=== PATIENT | male | born 1935 | race Caucasian/White ===

== ENCOUNTER 2019-03-08 18:24 | Inpatient (IN) | payer OTHER ==
[2019-03-08] VITALS (8 sets, daily range): BP systolic 108–164; BP diastolic 59–82; BMI 24.0
[~2019-03-08] VITALS: Ht 188 cm; Wt 84.8 kg
--- NOTE | ~2019-03-08 | HEMODYNAMI ---
PATIENT:FATIMAH STEVENS MEDICAL RECORD: [id number] : 35 LOCATION:[facility] D.2306 ADMISSION DATE: 03/08/19 Generatedon:03/10/201915:32 Patient name: FATIMAH STEVENS Patient #: [id number] SSN: : 1935 Date of study: 03/10/2019 Page: Of Hemodynamic Procedure Report Patient Data Patient Demographics Procedure consent was obtained First Name: FATIMAH Gender: Male Last Name: HILDA : 1935 Patient #: [id number] Age: 84 year(s) Race: Unknown Additional ID: [id number] Contact details [address]: [address] [place] [address] State: [place] City: [place] Zip code: [address] Past Medical History Allergies Allergen Reaction Date Comments Reported Penicillins 03/09/2019 Penicillins 03/10/2019 Admission Admission Data Admission Date: 03/08/2019 Admission Time: 20:36 Room #: D.2306 Lab Results Lab Result Date: 03/09/2019 Lab Result Time: 0:00 Biochemistry Name Units Result Min Max BUN mg/dl 37 --(----)-* 7 18 Creatinine mg/dl 1.4 --(----)*- 0.6 1.3 eGFR ml/min 51 *-(----)-- 90 120 NONAFRICAN CBC Name Units Result Min Max Hematocrit % 35.4 *-(----)-- 42 54 Hemoglobin g/dl 12.6 -*(----)-- 13.5 17.5 Procedure Procedure Types Cath Procedure Diagnostic Procedure PPM/ICD PPM Ventricular Implant Procedure Description Procedure Date Procedure Date: 03/10/2019 Procedure Start Time: 15:00 Procedure End Time: 15:32 Procedure Staff Name Function Gaudencio Newman MD Performing Physician Clinton Moran MD Assisting physician Leander Sequeira RT Monitor Rebekah Diez RT Scrub Payam Phillip RN Nurse Procedure Data Cath Procedure Fluoroscopy Diagnostic fluoroscopy Total fluoroscopy Time: 5.4 time: 5.4 min min Diagnostic fluoroscopy Total fluoroscopy dose: dose: 265.82 mGy 265.82 mGy Estimated blood loss: 5 ml Procedure Complications No complications Procedure Medications Medication Administration Route Dosage 0.9% NaCl I.V. 100 ml/hr Oxygen etCO2 Nasal cannula 2 l/min Lidocaine 1% added to field 20 Vancomycin 1 g Irrigation Versed I.V. 1 mg Fentanyl I.V. 50 mcg Vancomycin I.V.P.B 500 Versed I.V. 1 mg Fentanyl I.V. 50 mcg Hemodynamics Rest HGB: 12.6 (g/dl) Heart Rate: 52 (bpm) Snapshots Pre Cath Intra NCS Post Cath Vital Signs Time Heart Resp SPO2 etCO2 NIBP (mmHg) Rhythm Pain Sedation Rate (ipm) (%) (mmHg) Status Level (bpm) 14:51:50 41 10 100 22.5 144/64(106) A-Fib 0 (11) 10(A) , No pain 14:56:04 44 22 100 24 141/67(106) A-Fib 0 (11) 10(A) , No pain 15:00:16 42 18 100 23.2 113/48(73) A-Fib 0 (11) 10(A) , No pain 15:04:24 37 21 100 13.5 130/61(98) A-Fib 0 (11) 10(A) , No pain 15:08:31 34 20 99 21 93/77(79) A-Fib 0 (11) 9(A) , No pain 15:13:16 41 15 99 27.8 125/68(79) A-Fib 0 (11) 9(A) , No pain 15:17:26 37 17 98 1.5 112/71(94) A-Fib 0 (11) 9(A) , No pain 15:21:32 89 12 99 0 127/77(106) Paced 0 (11) 10(A) , No pain 15:25:40 69 16 98 4.5 113/78(93) Paced 0 (11) 10(A) , No pain 15:29:43 73 12 99 0.7 128/73(85) Paced 0 (11) 10(A) , No pain Medications Time Medication Route Dose Verified Delivered Reason Notes Effectiv eness by by 14:49:51 0.9% NaCl I.V. 100 Payam Payam Per ml/hr Marjan Phillip physician RN RN 14:50:02 Oxygen etCO2 2 Payam Payam for low 02 Nasal l/min Lorigan Lorigan sats cannula RN RN 14:50:22 Lidocaine added 20ml Payam Payam for local 1% to vial Lorigan Lorigan anesthetic field x2 RN RN 14:51:10 Vancomycin Topical 1 g Payam Payam used for Irrigation (added Lorigan Neetuigan procedure to RN senior field service engineer) 14:57:40 Versed I.V. 1 mg Payam Payam for Lorigan Lorigan sedation RN RN 14:57:55 Fentanyl I.V. 50 Payam Payam for mcg Lorigan Lorigan sedation RN RN 15:00:57 Vancomycin I.V.P.B 500 Payam Payam Per mg. Marjan Phillip physician RN RN 15:03:00 Versed I.V. 1 mg Payam Payam for Lorigan Lorigan sedation RN RN 15:03:05 Fentanyl I.V. 50 Payam Payam for mcg Lorigan Lorigan sedation RN roll machine operator Log Time Note 14:19:16 Signed procedure consent form obtained from patient. 14:19:20 Procedure Status Urgent Heart Cath (IP). 14::22 Time tracking: Regular hours (M-F 7:00 - 5:00) 14:19:26 Plan of Care:Hemodynamics will remain stable., Cardiac rhythm will remain stable., Comfort level will be maintained., Respiratory function will remain adequate., Patient/ family verbilizes understanding of procedure., Procedure tolerated without complication., Recovers from procedure without complications.. 14:19:39 Leander Sequeira RT(R) sent for patient. Start room use. 14:23:38 Patient allergic to Penicillins 14:28:04 Medtronic sales representative public utilities TATUM BERG present for procedure. 14:28:18 Use device set TEREZA PPM 14:28:19 2-0 Ticron Multipack ([id number]) opened to sterile field. 14:28:19 3-0 Vicryl Single Pack [id number] opened to sterile field. 14:28:20 5-0 Monocryl PS2 [id number] opened to sterile field. 14:28:20 Cautery Tip Field Technical Support Consultant opened to sterile field. 14:28:20 Cautery Pushbutton Pencil opened to sterile field. 14:28:21 Mepilex Dressing ([id number]) opened to sterile field. 14:28:23 Immobilizer Large opened to sterile field. 14:28:39 Medtronic JUAN CARLOS XT SR Generator [id number] opened to sterile field. 14:29:04 Medtronic 4074-52 PPM Lead opened to sterile field. 14:41:04 Patient received from ICU to CCL 3 Alert and oriented. Tansferred to table in Supine position. 14:41:05 Warm blankets applied, and neno hugger turned on for patient comfort. 14:41:05 Correct patient and procedure confirmed by team. 14:41:06 ECG and BP/O2 sat monitors applied to patient. 14:49:51 0.9% NaCl 100 ml/hr I.V. was administered by Payam Phillip RN; Per physician; 14:50:02 Oxygen 2 l/min etCO2 Nasal cannula was administered by Paaym Phillip RN; for low 02 sats; 14:50:22 Lidocaine 1% 20ml vial x2 added to field was administered by Payam Phillip RN; for local anesthetic; 14:50:29 Vital chart was started 14:51:10 Vancomycin Irrigation 1 g Topical (added to field) was administered by Payam Phillip RN; used for procedure; 14:52:25 Baseline sample Acquired. 14:52:27 Rhythm: 3rd degree heart block 14:52:28 Full Disclosure recording started 14:52:36 H&P Date Dictated: 03/08/2019 Within 30 days and on chart.. 14:52:37 Pre-procedure instructions explained to patient. 14:52:37 Pre-op teaching completed and patient verbalized understanding. 14:52:40 Family unavailable. 14:52:41 Patient NPO since Midnight. 14:52:44 Is the patient allergic to Iodine/contrast media? No. 14:52:47 Is patient on blood thinner?No 14:52:48 Patient diabetic? No. 14:52:50 Previous problem with sedation/anesthesia? No ? 14:52:51 Snore? Yes 14:52:52 Sleep apnea? No 14:52:53 Deviated septum? No 14:52:53 Opens mouth fully? Yes 14:52:54 Sticks out tongue? Yes 14:52:56 Airway obstruction? No ? 14:53:01 Dentures? Yes IN 14:53:09 IV patent on arrival in right forearm with 0.9% NaCl at [facility]. 14:53:12 Lab results completed and on chart. 14:53:29 Left chest area was prepped with dura-prep and draped in sterile fashion 14:53:30 Alarms reviewed by R. N. 14:53:31 Sharps counted by scrub and verified by R.N. 14:55:01 Pre sharps counted by scrub and verified by RN: Sutures: 7; Sponges: 5; Stick needles: 1; Skin needles: 2; Blade: 1; Cautery: 1 14:55:04 Grounding pad site Left thigh. 14:55:06 Grounding pad site free from injury. 14:57:00 --------ALL STOP TIME OUT------ 14:57:00 Final Timeout: patient, procedure, and site verified with staff and physician. All members of the team are in agreement. 14:57:04 Left chest site verified by team. 14:57:10 Fire Safety Assessment: A--An alcohol-based skin anteseptic being used preoperatively., B--The operative or invasive procedure is being performed above the xiphoid process or in the oropharynx. 14:57:14 Physical assessment completed. ASA score P 2 - A patient with mild systemic disease as per Gaudencio Newman MD. 14:57:18 Sedation plan: IV Moderate Sedation Medication:Versed, Fentanyl 14:57:40 Versed 1 mg I.V. was administered by Payam Phillip RN; for sedation; 14:57:55 Fentanyl 50 mcg I.V. was administered by Payam Phillip RN; for sedation; 15:00:45 Procedure started. 15:00:53 Lidocaine 1% was administered to left subclavicular area by Clinton Morna MD . 15:00:57 Vancomycin 500 mg. I.V.P.B was administered by Payam Phillip RN; Per physician; 15:01:59 Incision made to left subclavicular area. 15:03:00 Versed 1 mg I.V. was administered by Payam Phillip RN; for sedation; 15:03:05 Fentanyl 50 mcg I.V. was administered by Payam Phillip RN; for sedation; 15:05:22 Generator pocket made/opened. 15:05:28 Left subclavian vein accessed with 7Fr Peel Away Sheath. 15:05:51 Ventricular lead inserted and advanced. 15:16:23 Ventricular lead positioned. 15:16:26 Ventricular lead tested. 15:19:33 Peel-a-way sheath was split and removed. 15:19:35 Ventricular lead attachment was completed with 2-0 ticron. 15:19:42 PPM Single was attached to lead(s) and inserted into pocket. 15:21:29 Generator was sutured in place with 2-0 ticron. 15:21:33 Device pocket was irrigated with Vancomycin. 15:22:16 Subcutaneous closure was completed with 3-0 vicryl. 15::50 Parameters-- Generator: Mode: VVIR. Lower Rate: 60bpm. Upper Rate: 120bpm. 15:23:06 Parameters--Ventricular P/R Wave: 5.1mV. Current: 0.6mA; Threshold: 0.5V; Impedence: 1215OHMS. 15:23:18 Skin closure was completed with 5-0 monocryl. 15:29:07 Lt Chest incision was dressed with Mepilex dressing. 15:29:14 Procedure ended.(Physican Out) 15:29:29 Fluoroscopy time 05.40 minutes. 15:29:38 Fluoroscopy dose: 265.82 mGy 15:29:38 Flurop Dose total: 265.82 15:29:47 Dose Area Product 3100.47 mGy/cm. 15:30:48 Insertion/operative site no bleeding no hematoma. 15:30:49 Post Procedure Pulses reassessed and unchanged 15:30:56 Post-procedure physical assessment completed. ASA score P 2 - A patient with mild systemic disease as per Gaudencio Newman MD. 15:30:58 Post procedure rhythm: paced 15:31:05 Estimated blood loss: 5 ml 15:31:07 Post procedure instruction explained to patient.Patient verbalizes understanding. 15:31:07 Patient needs reinforcement of post procedure teaching. 15:31:16 Procedure and supply charges have been captured, reviewed, submitted and are correct. 15:31:19 Procedure Complication : No complications 15:31:57 Vital chart was stopped 15:31:57 See physician's report for complete and final results. 15:32:01 Report given to ICU. 15:32:04 Patient transfered to ICU with Bed. 15:32:06 Procedure ended. 15:32:06 Full Disclosure recording stopped 15:32:20 End room use (Document Last) Device Usage Item Name Manufacture Quantity Catalog Hospital Part Current Minima l Lot# / Number Charge Number Stock Stock Serial# Code 2-0 Ticron Ethicon 3 [id number] 5 Multipack ([id number]) 3-0 Vicryl Ethicon 1 [id number] 226653 [id number] 5 Single Pack [id number] 5-0 Monocryl Ethicon 1 Y495G 186531 191242 849555 5 PS2 Y495G Cautery Tip Microtek 1 [id number] 839938 926377 991610 5 Field Technical Support [employer] Cautery Microtek 1 [id number] 170856 76933 108837 5 Pushbutton [employer] Pencil Mepilex Cardinal 1 [id number] 360194 362059 658962 5 [facility] ([id number]) Immobilizer Cardinal 1 [id number] [id number] 892156 753965 5 Large [facility] Medtronic Medtronic 1 [id number] 180438 [id number] [id number] 5 [id number] JUAN CARLOS XT SR EXP Generator 06.10.20 [id number] Medtronic Medtronic 1 4074-52 528437 [id number] [id number] 5 [id number] 4074-52 PPM EXP Lead 2 Signature Audit [place] Stage Time Signature Unsigned Intra-Procedure 03/10/2019 Leander Sequeira 3:32:49 PM RT(R) Signatures Performing Physician : Signature : Gaudencio Newman MD Date : Time : Monitor : Leander Sequeira RT Signature : Date : Time : Nurse : Payam Phillip Signature : RN Date : Time : [place] [address] [place] [address]
--- NOTE | ~2019-03-08 | HEMODYNAMI ---
PATIENT:FATIMAH STEVENS MEDICAL RECORD: [id number] : 35 LOCATION:[facility] D.2306 ADMISSION DATE: 03/08/19 Generatedon:03/09/201914:52 Patient name: FATIMAH STEVENS Patient #: [id number] SSN: : 1935 Date of study: 03/09/2019 Page: Of Hemodynamic Procedure Report Patient Data Patient Demographics Procedure consent was obtained First Name: FATIMAH Gender: Male Last Name: HILDA : 1935 Patient #: [id number] Age: 84 year(s) Race: Unknown Additional ID: [id number] Contact details [address]: [address] [place] [address] State: [place] City: [place] Zip code: [address] Past Medical History Allergies Allergen Reaction Date Comments Reported Penicillins 03/09/2019 Admission Admission Data Admission Date: 03/08/2019 Admission Time: 20:36 Room #: D.2306 Lab Results Lab Result Date: 03/09/2019 Lab Result Time: 0:00 Biochemistry Name Units Result Min Max BUN mg/dl 37 --(----)-* 7 18 Creatinine mg/dl 1.4 --(----)*- 0.6 1.3 eGFR ml/min 51 *-(----)-- 90 120 NONAFRICAN CBC Name Units Result Min Max Hematocrit % 35.4 *-(----)-- 42 54 Hemoglobin g/dl 12.6 -*(----)-- 13.5 17.5 Procedure Procedure Types Cath Procedure Diagnostic Procedure LHC LHC w/Coronaries Procedure Description Procedure Date Procedure Date: 03/09/2019 Procedure Start Time: 14:20 Procedure End Time: 14:51 Procedure Staff Name Function Jamie Nunn MD Performing Physician Rebekah Diez RT Monitor Leander Sequeira RT Scrub Natalee Raza RT Scrub Mahnaz Salguero RN Nurse Procedure Data Cath Procedure Fluoroscopy Diagnostic fluoroscopy Total fluoroscopy Time: 4.6 time: 4.6 min min Diagnostic fluoroscopy Total fluoroscopy dose: 551 dose: 551 mGy mGy Contrast Material Contrast Material Type Amount (ml) Isovue 300 82 Entry Location Entry Primary Successful Side Size Upsize Upsize Entry Closure Succes sful Closure Location (Fr) 1 (Fr) 2 (Fr) Remarks Device Remarks Femoral Left 5 Fr Exoseal artery Estimated blood loss: 10 ml Diagnostic catheters Device Type Used For End Catheter Placement MULTIPACK JL 4.0 5Fr Procedure catheter MULTIPACK 3DRC 5Fr Procedure catheter MULTIPACK Pigtail 5 Fr Procedure catheter Procedure Complications No complications Procedure Medications Medication Administration Route Dosage Oxygen etCO2 Nasal cannula 2 l/min Lidocaine 2% added to field 20 Heparin Flush Bag added to field 2 bags (1000units/500ml NS) 0.9% NaCl I.V. 100 ml/hr Versed I.V. 1 mg Versed I.V. 1 mg Fentanyl I.V. 50 mcg Fentanyl I.V. 50 mcg Hemodynamics Rest HGB: 12.6 (g/dl) Heart Rate: 43 (bpm) Pressure Samples Time Site Value (mmHg) Purpose Heart Use Rate(bpm) 14:39 LV 124/5,12 Snapshot 54 14:40 AO 118/51(72) Pullback 38 14:40 LV 116/7,6 Pullback 38 Gradients Valve Time Site 1 Site 2 Mean SEP/DFP Peak To Heart Use (mmHg) (sec/min) Peak Rate (mmHg) (bpm) Aortic 14:40 LV AO 0 11 0 38 116/7,6 118/51(72) Calculations Valve P-P Mean Valve Index Valve Source Name Gradient Area Flow (cm2) Aortic 0 0 0 0 Snapshots Pre Cath Intra NCS Post Cath Vital Signs Time Heart Resp SPO2 etCO2 NIBP (mmHg) Rhythm Pain Sedation Rate (ipm) (%) (mmHg) Status Level (bpm) 14:12:22 39 12 100 0 142/66(109) NSR 0 (11) 10(A) , No pain 14:16:50 35 33 100 0 117/61(75) NSR 0 (11) 10(A) , No pain 14:21:08 41 17 93 0 118/59(84) NSR 0 (11) 10(A) , No pain 14:25:24 35 22 98 14.2 117/64(77) NSR 0 (11) 9(A) , No pain 14:29:42 39 23 95 9.7 119/67(104) NSR 0 (11) 9(A) , No pain 14:34:07 41 17 94 0 115/45(84) NSR 0 (11) 9(A) , No pain 14:38:27 32 10 98 0 111/55(74) NSR 0 (11) 9(A) , No pain 14:43:58 33 16 95 14.9 105/65(88) NSR 0 (11) 9(A) , No pain 14:48:14 39 13 93 0 110/56(80) NSR 0 (11) 10(A) , No pain Medications Time Medication Route Dose Verified Delivered Reason Notes Eff ectiveness by by 14:15:09 Oxygen etCO2 2 Jamie Buffie used for Nasal l/min Edouard Salguero RN procedure cannula 14:15:17 Lidocaine 2% added 20ml Jamie Jamie for local to vial Edouard Nunn MD anesthetic field 14:15:25 Heparin Flush added 2 Jamie Jamie used for Bag to bags Edouard Nunn MD procedure (1000units/500ml field NS) 14:15:35 0.9% NaCl I.V. 100 Jamie Buffie Per ml/hr Edouard Salguero RN physician 14:19:04 Fentanyl I.V. 50 Jamie Buffie for mcg Edouard Salguero RN sedation 14:19:57 Versed I.V. 1 mg Jamie Buffie for Edouard Salguero RN sedation 14:29:58 Versed I.V. 1 mg Jamie Buffie for Edouard Salguero RN sedation 14:30:05 Fentanyl I.V. 50 Jamie Buffie for [facility] Edouard Salguero RN sedation Procedure Log Time Note 13:50:51 Mahnaz Salguero RN sent for patient. Start room use. 13:50:54 Procedure Status Urgent Heart Cath (IP). 13:50:55 Time tracking: Regular hours (M-F 7:00 - 5:00) 13:50:59 Plan of Care:Hemodynamics will remain stable., Cardiac rhythm will remain stable., Comfort level will be maintained., Respiratory function will remain adequate., Patient/ family verbilizes understanding of procedure., Procedure tolerated without complication., Recovers from procedure without complications.. 13:51:01 Signed procedure consent form obtained from patient. 13:51:42 Patient allergic to Penicillins 13:52:25 Lab Result : BUN 37 mg/dl 13:52:25 Lab Result : Creatinine 1.4 mg/dl 13:52:25 Lab Result : Hemoglobin 12.6 g/dl 13:52:25 Lab Result : eGFR NONAFRICAN 51 ml/min 13:52:25 Lab Result : Hematocrit 35.4 % 14:01:06 Patient received from ICU to CCL 1 Alert and oriented. Tansferred to table in Supine position. 14:01:08 Warm blankets applied, and neno hugger turned on for patient comfort. 14:01:09 Correct patient and procedure confirmed by team. 14:01:09 ECG and BP/O2 sat monitors applied to patient. 14:10:49 Vital chart was started 14:13:30 Baseline sample Acquired. 14:13:40 Rhythm: atrial fibrillation 14:13:42 Full Disclosure recording started 14:13:45 Pre-procedure instructions explained to patient. 14:13:45 Pre-op teaching completed and patient verbalized understanding. 14:13:48 Family in patients room. 14:13:51 Patient NPO since Midnight. 14:13:52 Is patient on blood thinner?No 14:13:54 Patient diabetic? No. 14:13:57 Previous problem with sedation/anesthesia? No ? 14:13:58 Snore? Yes 14:13:59 Sleep apnea? No 14:14:00 Deviated septum? No 14:14:00 Opens mouth fully? Yes 14:14:01 Sticks out tongue? Yes 14:14:03 Airway obstruction? No ? 14:14:07 Dentures? Yes IN 14:14:12 Pre procedure: right dorsailis pedis pulse 1+ Palpable, but thready & weak; easily obliterated 14:14:47 IV patent on arrival in right hand with 0.9% NaCl at [facility]. 14:14:49 Lab results completed and on chart. 14:14:53 Right groin area was prepped with chlora-prep and draped in sterile fashion 14:15:05 Alarms reviewed by R. N. 14:15:05 Sharps counted by scrub and verified by R.N. 14:15:09 Oxygen 2 l/min etCO2 Nasal cannula was administered by Buffie Salguero RN; used for procedure; 14:15:17 Lidocaine 2% 20ml vial added to field was administered by Jamie Nunn MD; for local anesthetic; 14:15:25 Heparin Flush Bag (1000units/500ml NS) 2 bags added to field was administered by Jamie Nunn MD; used for procedure; 14:15:27 Use device set Femoral Dx 14:15:28 ACIST Syringe (64436) opened to sterile field. 14:15:29 Bag Decanter (2002S) opened to sterile field. 14:15:31 ACIST Hand Control (96616) opened to sterile field. 14:15:32 ACIST Manifold (66181) opened to sterile field. 14:15:33 Tegaderm 4 x 4 (1626W) opened to sterile field. 14:15:34 Medline Cath Pack ([id number]) opened to sterile field. 14:15:35 0.9% NaCl 100 ml/hr I.V. was administered by Mahnaz Salguero RN; Per physician; 14:15:35 DIAGNOSTIC Multipack 5Fr catheter set ([id number]) opened to sterile field. 14:15:36 SHEATH 5FR [place] (AHI063) opened to sterile field. 14:15:36 EMERALD Guide Wire (840-574) opened to sterile field. 14:17:32 --------ALL STOP TIME OUT------ 14:17:33 Final Timeout: patient, procedure, and site verified with staff and physician. All members of the team are in agreement. 14:17:33 Right groin site verified by team. 14:17:36 Fire Safety Assessment: A--An alcohol-based skin anteseptic being used preoperatively., C--Open oxygen or nitrous oxide is being used., D--An ESU, laser, or fiber-optic light is being used. 14:17:39 Physical assessment completed. ASA score P 3 - A patient with severe systemic disease as per Jamie Nunn MD. 14:17:50 3a) 45-59 Moderately reduced kidney function. 14:18:09 Maximum allowable contrast dose (3.7 X eGFR X 0.75)123 ml. 14:18:13 Sedation plan: IV Moderate Sedation Medication:Versed, Fentanyl 14:18:19 Zero performed for pressure channel P1 14:19:04 Fentanyl 50 mcg I.V. was administered by Mahnaz Salguero RN; for sedation; 14:19:57 Versed 1 mg I.V. was administered by Mahnaz Salguero RN; for sedation; 14:19:57 Procedure started. 14:20:32 Local anesthetic to right femoral artery with Lidocaine 2% by Jamie Nunn MD.INITIAL ACCESS ONLY 14:21:14 Zero performed for pressure channel P1 14:21:19 Zero performed for pressure channel P1 14:29:30 UNABLE TO CANNULATE RT. GROIN. PROCEED TO LEFT. 14:29:34 Local anesthetic to left femerol artery with Lidocaine 2% by Jamie Nunn MD.ADDITIONAL ACCESS 14:29:42 SHEATH 5FR [place] (JXC021) opened to sterile field. 14:29:58 Versed 1 mg I.V. was administered by Mahnaz Salguero RN; for sedation; 14:30:04 Zero performed for pressure channel P1 14:30:05 Fentanyl 50 mcg I.V. was administered by Mahnaz Salguero RN; for sedation; 14:31:25 A 5 Fr sheath was inserted into the Left Femoral artery 14:32:57 A MULTIPACK JL 4.0 5Fr catheter was advanced over the wire and used for Procedure. 14:35:23 LCA angiography performed. 14:35:27 Catheter exchanged over wire. 14:38:56 A MULTIPACK 3DRC 5Fr catheter was advanced over the wire and used for Procedure. 14:39:02 RCA angiography performed. 14:39:08 Catheter removed. 14:39:20 A MULTIPACK Pigtail 5 Fr catheter was advanced over the wire and used for Procedure. 14:40:09 EF : 35 % 14:40:41 Abdominal Aortagram was performed. 14:42:20 RIGHT ILLIAC angiography performed. 14:45:03 Catheter removed. 14:45:56 EXOSEAL 5Fr (EX500) opened to sterile field. 14:46:13 Sheath removed intact; hemostasis achieved with Exoseal to the Left Femoral artery. 14:46:16 Procedure ended.(Physican Out) 14:46:33 Fluoroscopy time 04.60 minutes. 14:46:40 Fluoroscopy dose: 551 mGy 14:46:40 Flurop Dose total: 551 14:46:46 Dose Area Product 21792 mGy/cm. 14:46:55 Contrast amount:Isovue 300 82ml. 14:46:58 Maximum allowable dose exceeded? No. 14:46:59 Sharps counted by scrub and verified by R.N. 14:48:39 Insertion/operative site no bleeding no hematoma. 14:48:44 Post-op/insertion site Right Femoral artery dressed using a 4 x 4 and Tegaderm. 14:48:48 Post-op/insertion site Left Femoral artery dressed using a 4 x 4 and Tegaderm. 14:48:53 Post Procedure Pulses reassessed and unchanged 14:49:11 Post-procedure physical assessment completed. ASA score P 2 - A patient with mild systemic disease as per Jamie Nunn MD. 14:49:26 Post procedure rhythm: unchanged., sinus bradycardia 14:49:29 Estimated blood loss: 10 ml 14:49:31 Post procedure instruction explained to patient.Patient verbalizes understanding. 14:49:47 Procedure type changed to Cath procedure, Diagnostic procedure, LHC, LHC w/Coronaries 14:49:48 Procedure and supply charges have been captured, reviewed, submitted and are correct. 14:51:03 Procedure Complication : No complications 14:51:06 Vital chart was stopped 14:51:07 See physician's report for complete and final results. 14:51:10 Report given to Pre/Post Procedure Room. 14:51:17 Patient transfered to Pre/Post Procedure Room with Stretcher. 14:51:21 Procedure ended. 14:51:21 Full Disclosure recording stopped 14:51:25 End room use (Document Last) Device Usage Item Name Manufacture Quantity Catalog Hospital Part Current Minimal L ot# / Number Charge Number Stock Stock Serial# Code ACIST Acist 1 49270 766901 687692 534642 20 Syringe Medical (06012) Systems Inc Bag Microtek 1 2001S 525118 99208 750078 5 Decanter Medical Inc. () ACIST Hand Acist 1 65608 728770 842648 523761 5 Control Medical (46967) Systems Inc ACIST Acist 1 07818 759427 553175 418918 5 Manifold Medical (54224) Systems Inc Tegaderm 4 3M 1 1626W 891408 219174 339308 5 x 4 (1626W) Medline Medline 1 [id number] 933872 71933 490313 5 Cath Pack ([id number]) DIAGNOSTIC Cardinal 1 VT3511 622113 13827 494954 30 Multipack Health 5Fr catheter set (WM8721) SHEATH 5FR Terumo 2 YEA351 056334 180032 848667 5 [place] (YWK353) EMERALD Cardinal 1 164-230 022832 947596 135843 5 Guide Wire Health (890-354) MULTIPACK Cardinal 1 218483 5 JL 4.0 5Fr Health catheter MULTIPACK Cardinal 1 851345 5 3DRC 5Fr Health catheter MULTIPACK Cardinal 1 875063 5 Pigtail 5 Health Fr catheter EXOSEAL 5Fr Cardinal 1 EX500 242880 512073 458028 10 (EX500) Health Signature Audit [place] Stage Time Signature Unsigned Intra-Procedure 03/09/2019 Rebekah Diez 2:52:11 PM RT(R) Signatures Performing Physician : Signature : Jamie Nunn MD Date : Time : Monitor : Rebekah Diez Signature : RT Date : Time : Nurse : Mahnaz Salguero RN Signature : Date : Time : [facility] [address] [place] [address]
--- NOTE | 2019-03-08 19:00 | NUR ---
BEDSIDE SBAR REPORT REC'D FROM MCKENZIE AT THIS TIME. NO S/S DISTRESS NOTED, BED IN LOW POSITION, CALL LIGHT IN REACH. DENIES NEEDS.
[2019-03-08 19:19] LABS: BASOPHILS 0.3 % (0-2); EOSINOPHILS 1.3 % (0-7); HEMATOCRIT 38.3 % (42.0-54.0); HEMOGLOBIN 13.7 g/dL (13.5-17.5); IMMATURE GRANULOCYTES 0.2 % (0-5); LYMPHOCYTES 26.2 % (15-50); MCHC 35.8 g/dL (31.0-37.0); MCV 86.7 fL (80.0-100.0); MEAN PLATELET VOLUME 11.8 fL (7.4-10.4); MONOCYTES 7.5 % (2-11); NEUTROPHILS 64.5 % (40-80); PLATELET COUNT 182 10x3/uL (130-400); RBC 4.42 10x6/uL (4.20-6.10); RDW 13.5 % (11.5-14.5); WBC 9.7 10x3/uL (4.8-10.8)
[2019-03-08 19:39] LABS: ALBUMIN 3.9 g/dL (3.4-5.0); ALKALINE PHOSPHATASE 56 U/L (46-116); ALT (SGPT) 30 U/L (10-68); BILIRUBIN - TOTAL 0.49 mg/dL (0.2-1.3); CALC OSMOLALITY 295 mosm/kg (275-300); CALCIUM 9.5 mg/dL (8.5-10.1); CARBON DIOXIDE 25.3 mmol/L (21.0-32.0); CHLORIDE - SERUM 104 mmol/L (98-107); CREATININE - SERUM 1.6 mg/dL (0.6-1.3); GLUCOSE 231 mg/dL (74-106); POTASSIUM - SERUM 3.3 mmol/L (3.5-5.1); PROTEIN - SERUM 7.7 g/dL (6.4-8.2); SODIUM 139 mmol/L (136-145); UREA NITROGEN 44 mg/dL (7-18); eGFR NON AFRICAN AMERICAN 44 mL/min (90-120)
[2019-03-08 19:48] LABS: PRO BNP 8518 pg/mL (0-450); THYROID STIMULATING HORMONE 3.02 uIU/mL (0.36-3.74)
[2019-03-08 19:51] LABS: TROPONIN-I < 0.017 ng/mL (0.000-0.060)
--- NOTE | 2019-03-08 20:05 | NUR ---
PT RESTING QUIETLY WITH EYES CLOSED, RESPIRATIONS EVEN AND UNLABORED. NO S/S DISTRESS. CALL LIGHT IN REACH, BEDRAILS UP X 2 FOR POSITIONING AND COMFORT.
--- NOTE | 2019-03-08 20:30 | NUR ---
THIS NURSE ASSISTED PT TO STANDING POSITION IN ORDER TO URINATE IN URINAL. ABLE TO STAND WITHOUT ASSIST. VOIDED 550ML YELLOW URINE AT THIS TIME. NO FURTHER NEEDS. CALL LIGHT IN REACH, SIDERAILS UP X 2 FOR POSITIONING.
--- NOTE | 2019-03-08 20:45 | NUR ---
PT FAMILY AT BEDSIDE. DENIES NEEDS AT THIS TIME.
--- NOTE | 2019-03-08 21:45 | NUR ---
PT ARRIVES ON UNIT VIA WHEELCHAIR, AMBULATES WITH MINIMAL ASSISTANCE. RESPIRATIONS UNLABORED, LUNG SOUNDS CLEAR THROUGHOUT. DENIES PAIN AT THIS TIME. HR 35-47, FIB ON MONITOR, PERIPHERAL PULSES PRESENT. URINAL REQUESTED, 250 MLS YELLOW URINE VOIDED. AOX4, DENIES NEEDS AT THIS TIME. FAMILY AT BEDSIDE, UPDATE PROVIDED AND ALL QUESTIONS ANSWERED. CALL LIGHT WITHIN PT REACH, ROOM VISIBLE FROM NURSES STATION. CPOC.
[2019-03-08] MEDS ORDERED: LISINOPRIL-HCT1 EAC4 PO (22:00)
[2019-03-08] MEDS ORDERED: FUROSEMIDE20 MG PO (22:01)
[2019-03-08] MEDS ORDERED: LOPRESSOR25 MG PO (22:01)
[2019-03-08] MEDS ORDERED: PLAVIX75 MG PO (22:02)
[2019-03-08] MEDS ORDERED: CARDIZEM30 MG (22:03)
[2019-03-08] MEDS ORDERED: MOBIC7.5 MG PO (22:04)
[2019-03-08] MEDS ORDERED: CRESTOR40 MG PO (22:04)
[2019-03-08] MEDS ORDERED: GLUCOPHAGE500 MG PO (22:05)
[2019-03-09] VITALS (23 sets, daily range): BP systolic 97–145; BP diastolic 54–80; Ht 188 cm; Wt 84.8 kg
--- NOTE | 2019-03-09 00:25 | NUR ---
AMPARO JOSE APN, AT BEDSIDE.
--- NOTE | 2019-03-09 01:05 | NUR ---
NO CHANGES AT THIS TIME. PT REPOSITIONED SELF INDEPENDENTLY. RESTING QUIELTY WITH NO S/S OF ACUTE DISTRESS, UNLABORED RESPIRATIONS. CALL LIGHT WITHIN PT REACH, ROOM VISIBLE FROM NURSES STATION. CPOC.
--- NOTE | 2019-03-09 03:00 | NUR ---
REASSESSMENT COMPLETE, SEE FLOWSHEET FOR ALL CHANGES. PT DENIES PAIN AT THIS TIME, BRADYCARDIC ON MONITOR. REPOSITIONS SELF INDEPENDENTLY. DENIES NEEDS. CALL LIGHT AND BEDSIDE TABLE WITHIN PT REACH. CPOC.
[2019-03-09 03:47] LABS: BASOPHILS 0.4 % (0-2); EOSINOPHILS 1.7 % (0-7); HEMATOCRIT 35.4 % (42.0-54.0); HEMOGLOBIN 12.6 g/dL (13.5-17.5); IMMATURE GRANULOCYTES 0.2 % (0-5); LYMPHOCYTES 36.2 % (15-50); MCH 30.8 pg (26.0-34.0); MCHC 35.6 g/dL (31.0-37.0); MCV 86.6 fL (80.0-100.0); MEAN PLATELET VOLUME 11.9 fL (7.4-10.4); MONOCYTES 7.4 % (2-11); NEUTROPHILS 54.1 % (40-80); PLATELET COUNT 166 10x3/uL (130-400); RBC 4.09 10x6/uL (4.20-6.10); RDW 13.5 % (11.5-14.5); WBC 8.4 10x3/uL (4.8-10.8)
[2019-03-09 04:19] LABS: ALBUMIN 3.4 g/dL (3.4-5.0); ALKALINE PHOSPHATASE 49 U/L (46-116); ALT (SGPT) 25 U/L (10-68); BILIRUBIN - TOTAL 0.67 mg/dL (0.2-1.3); CALC OSMOLALITY 293 mosm/kg (275-300); CALCIUM 9.3 mg/dL (8.5-10.1); CARBON DIOXIDE 27.1 mmol/L (21.0-32.0); CHLORIDE - SERUM 105 mmol/L (98-107); CREATINE KINASE 44 UL (21-232); CREATININE - SERUM 1.4 mg/dL (0.6-1.3); GLUCOSE 198 mg/dL (74-106); MAGNESIUM - SERUM 1.6 mg/dL (1.8-2.4); PHOSPHOROUS 3.1 mg/dL (2.5-4.9); POTASSIUM - SERUM 3.6 mmol/L (3.5-5.1); PROTEIN - SERUM 6.7 g/dL (6.4-8.2); SODIUM 140 mmol/L (136-145); UREA NITROGEN 37 mg/dL (7-18); eGFR NON AFRICAN AMERICAN 51 mL/min (90-120)
[2019-03-09 04:24] LABS: TROPONIN-I < 0.017 ng/mL (0.000-0.060)
--- NOTE | 2019-03-09 05:00 | NUR ---
RESTING QUIETLY WITH NO CHANGES AT THIS TIME. NO C/O PAIN. RESPIRATIONS UNLABORED AND EVEN. REPOSITIONS INDEPENDENTLY. CALL LIGHT WITHIN PT REACH. CPOC.
--- NOTE | 2019-03-09 07:00 | NUR ---
PATIENT EASILY AROUSED. ALERT AND ORIENTED. ASYMPTOMATIC FROM BRADYCARDIA. SOB ON EXERTION. WILL CONTINUE TO MONITOR. HR 35. BP 112/82.
[2019-03-09 08:52] LABS: ANION GAP 13.6 mmol/L (8-16); CALCIUM 9.3 mg/dL (8.5-10.1); CREATININE - SERUM 1.5 mg/dL (0.6-1.3); POTASSIUM - SERUM 3.6 mmol/L (3.5-5.1)
--- NOTE | 2019-03-09 09:00 | NUR ---
PATIENT SLEEPING. NO DISTRESS. DENIES NEEDS. NO CHANGES FROM SHIFT ASSESSMENT. WILL CONTINUE TO MONITOR. ASYMPTOMATIC FROM HR OF 36. SOB ON EXERTION.
--- NOTE | 2019-03-09 11:22 | NUR ---
PATIENT RESTING. FAMILY AT BEDSIDE. NO DISTRESS NOTED. COMPLAINS OF SWOLLEN UVULA. SALT WATER GARGLED.
--- NOTE | 2019-03-09 15:30 | NUR ---
PATIENT BACK FROM VEHICLE SAFETY INSPECTOR
--- NOTE | 2019-03-09 17:04 | NUR ---
CUT FEM STOP PRESSURE IN HALF PER PROTOCOL TO 35. WILL CONTINUE TO MONITOR. PATIENT HAS A FULL BLADDER BUT IS UNABLE TO URINATE.
--- NOTE | 2019-03-09 17:22 | NUR ---
FAMILY AT BEDSIDE. UPDATE GIVEN.
--- NOTE | 2019-03-09 17:26 | MORECARE ---
CASE MANAGEMENT DISCHARGE SUMMARY PATIENT: FATIMAH STEVENS UNIT: [id number] ADM DATE: 03/08/19 AGE: 84 : 35 SEX: M ROOM/BED: D.2306 AUTHOR: IGGY,DOC PHYSICIAN: REFERRING PHYSICIAN: LESLIE SANCHEZ MD DATE OF SERVICE: 03/09/19 Discharge Plan Patient Name: FATIMAH STEVENS Facility: [facility]:[place] : 1935 Planned Disposition: Home Anticipated Discharge Date: Discharge Date: Expected LOS: Initial Reviewer: [email or web address] Initial Review Date: 03/09/2019 Generated: 03/09/19 6:26 pm Comments DCP- Discharge Planning Updated by [email or web address]: Allyn Arthur on 03/09/19 4:[address] Patient Name: FATIMAH STEVENS Admission Status: ER Accout number: [id number] Admission Date: 03-08-2019 : 1935 Admission Diagnosis: Attending: LESLIE SANCHEZ Current LOS: 1 Anticipated DC Date: Planned Disposition: Home Primary Insurance: [employer] PPO Discharge Planning Comments: CM met with patient at bedside after explaining CM role and obtaining verbal consent. Patient lives at home with his where he is independent with his care and plans to return there upon discharge. Patient feels this would be a safe discharge. CM discussed availability / needs of home health and medical equipment. Patient denies any discharge needs at this time. Patient states he will have his family drive him home upon discharge. CM will continue to follow and assist as needed with discharge planning / needs. Rug Dry Room Attendant: Allyn Arthur DCPIA - Discharge Planning Initial Assessment Updated by [email or web address]: Allyn Arthur on 03/09/19 5:22 pm * Is the patient Alert and Oriented? Yes * How many steps to enter\exit or inside your home? * PCP BELKIS BLANCO * Pharmacy [facility] - [place] * Preadmission Environment Home with Family * ADLs Partial Dependent * Equipment None * List name and contact numbers for known caregivers / representatives who currently or will assist patient after discharge: ADOLFO STEVENS - - [phone], * Verbal permission to speak to the caregivers and representatives has been obtained from the patient. Yes * Community resources currently utilized None * Additional services required to return to the preadmission environment? No * Can the patient safely return to the preadmission environment? Yes * Has this patient been hospitalized within the prior 30 days at any hospital? No Patient Name: FATIMAH STEVENS Page [phone] at 1726 All edits/amendments must be made on the electronic document DICTATION DATE: 03/09/191725 UNIT ASSEMBLER: JOSE ANGEL 03/09/191725 RPT#: [id number] DC DATE: STATUS: ADM IN [facility] [address] [place] [address] END OF REPORT
--- NOTE | 2019-03-09 17:52 | NUR ---
LEFT GROIN IS SOFT AND DRESSING IS CDI.
--- NOTE | 2019-03-09 17:52 | NUR ---
RIGHT GROIN AREA IS SOFT. PULSES PALPABLE. VSS. WILL CONTINUE TO MONITOR.
--- NOTE | 2019-03-09 18:20 | NUR ---
FEM STOP DC'D AT THIST ANA M
--- NOTE | 2019-03-09 19:30 | NUR ---
PT ALERT AND ORIENTED X4. FOLLOWS ALL COMMANDS, HARD OF HEARING. BRADYCARDIC ON MONITOR, HR 30'S, ASYMPTOMATIC. SOB ONLY WITH EXERTION. PT REPOSITIONED WITH MINIMAL ASSISTANCE. BILATERAL GROIN SOFT WITH NO S/S OF HEMATOMA, PERIPHERAL PULSES PRESENT. PT DENIES PAIN. PT DENIES NEEDS. CALL LIGHT AND BEDSIDE TABLE WITHIN PT REACH. CPOC.
--- NOTE | 2019-03-09 21:23 | NUR ---
FRESH WATER PROVIDED. HS MEDS GIVEN, TOLERATED WELL. PERIPHERAL PULSES PRESENT, BILATERAL GROINS WITH NO S/S OF HEMATOMA. PT DENIES PAIN, DENIES NEEDS. CALL LIGHT AND BEDSIDE TABLE WITHIN PT REACH. CPOC.
--- NOTE | 2019-03-09 23:30 | NUR ---
REASSESSMENT COMPLETE, NO NEW CHANGES AT THIS TIME. PT RESTING COMFORTABLY. REMAINS BRADYCARDIC ON MONITOR, BP WNL. DENIES PAIN. FRESH WATER TO BEDSIDE. DENIES FURTHER NEEDS. CALL LIGHT AND BEDSIDE TABLE WITHIN PT REACH. CPOC.
[2019-03-10] VITALS (25 sets, daily range): BP systolic 91–159; BP diastolic 53–130
--- NOTE | 2019-03-10 01:30 | NUR ---
PT RESTING QUIETLY WITH NO S/S OF ACUTE DISTRESS. REPOSITIONED SELF INDEPENDENTLY. CALL LIGHT AND BEDSIDE TABLE WITHIN PT REACH. CPOC.
--- NOTE | 2019-03-10 03:30 | NUR ---
REASSESSMENT COMPLETE, NO NEW CHANGES AT THIS TIME. PARTIAL LINEN CHANGE PROVIDED. DENIES PAIN, PERIPHERAL PULSES PRESENT. BILATERAL GROIN WITH NO S/S OF HEMATOMA. CALL LIGHT AND BEDSIDE TABLE WITHIN PT REACH. CPOC.
[2019-03-10 04:22] LABS: BASOPHILS 0.5 % (0-2); EOSINOPHILS 2.2 % (0-7); HEMATOCRIT 35.9 % (42.0-54.0); HEMOGLOBIN 12.7 g/dL (13.5-17.5); IMMATURE GRANULOCYTES 0.2 % (0-5); LYMPHOCYTES 27.3 % (15-50); MCH 30.8 pg (26.0-34.0); MCHC 35.4 g/dL (31.0-37.0); MCV 86.9 fL (80.0-100.0); MEAN PLATELET VOLUME 11.9 fL (7.4-10.4); MONOCYTES 6.4 % (2-11); NEUTROPHILS 63.4 % (40-80); PLATELET COUNT 170 10x3/uL (130-400); RBC 4.13 10x6/uL (4.20-6.10); RDW 13.6 % (11.5-14.5); WBC 8.3 10x3/uL (4.8-10.8)
[2019-03-10 04:39] LABS: ANION GAP 12.8 mmol/L (8-16); CARBON DIOXIDE 27.3 mmol/L (21.0-32.0); CREATININE - SERUM 1.4 mg/dL (0.6-1.3); MAGNESIUM - SERUM 1.7 mg/dL (1.8-2.4); PHOSPHOROUS 3.2 mg/dL (2.5-4.9); POTASSIUM - SERUM 3.1 mmol/L (3.5-5.1)
--- NOTE | 2019-03-10 05:50 | NUR ---
CHG BATH AND COMPLETE LINEN CHANGE PROVIDED.
--- NOTE | 2019-03-10 08:41 | NUR ---
CLIPPED PATIENT FROM CHIN TO NIPPLE LINE BILATERALLY PER ORDER. DR. PEREIRA HAS ALSO BEEN CONSULTED.
--- NOTE | 2019-03-10 11:00 | NUR ---
STARTED 18 GUAGE IV TO LEFT FOREARM. VSS.
--- NOTE | 2019-03-10 14:40 | NUR ---
PATIENT TAKEN TO FOAM CHARGER FOR PERMANENT PACE MAKER PLACEMENT.
--- NOTE | 2019-03-10 15:50 | NUR ---
PT RETURNED FROM PROCEDURE AT THIS TIME. HOOKED UP TO MONITOR. VSS. HR 68 AND REGULAR. WILL CONTINUE TO MONITOR
--- NOTE | 2019-03-10 17:00 | NUR ---
TOOK OVER PT CARE FROM CHARLES. SALINAS. WILL CONTINUE TO MONITOR
[2019-03-11] VITALS (8 sets, daily range): BP systolic 114–135; BP diastolic 61–84
[2019-03-11 04:35] LABS: BASOPHILS 0.4 % (0-2); EOSINOPHILS 2.1 % (0-7); HEMATOCRIT 37.6 % (42.0-54.0); HEMOGLOBIN 13.1 g/dL (13.5-17.5); IMMATURE GRANULOCYTES 0.1 % (0-5); LYMPHOCYTES 22.4 % (15-50); MCH 30.3 pg (26.0-34.0); MCHC 34.8 g/dL (31.0-37.0); MEAN PLATELET VOLUME 11.7 fL (7.4-10.4); MONOCYTES 7.7 % (2-11); NEUTROPHILS 67.3 % (40-80); PLATELET COUNT 168 10x3/uL (130-400); RBC 4.32 10x6/uL (4.20-6.10); RDW 13.6 % (11.5-14.5); WBC 8.2 10x3/uL (4.8-10.8)
[2019-03-11 04:47] LABS: ANION GAP 15.1 mmol/L (8-16); CALCIUM 8.5 mg/dL (8.5-10.1); CARBON DIOXIDE 24.3 mmol/L (21.0-32.0); CREATININE - SERUM 1.4 mg/dL (0.6-1.3); MAGNESIUM - SERUM 1.6 mg/dL (1.8-2.4); PHOSPHOROUS 2.8 mg/dL (2.5-4.9); POTASSIUM - SERUM 3.4 mmol/L (3.5-5.1)
--- NOTE | 2019-03-11 08:36 | NUR ---
Nutrition follow-up: Diet advanced to low sodium s/p pacemaker placement Pt reports usually good appetite; eating breakfast at this time Labs revieweed Possible d/c today. RDN following.
--- NOTE | 2019-03-11 09:00 | NUR ---
PT RESTING IN BED. CALL LARES IN REACH. AWAKE ALERT AND ORIENTED.
--- NOTE | 2019-03-11 20:50 | MORECARE ---
CASE MANAGEMENT DISCHARGE SUMMARY PATIENT: FATIMAH STEVENS UNIT: [id number] ADM DATE: 03/08/19 AGE: 84 : 35 SEX: M ROOM/BED: D.2306 AUTHOR: IGGY,DOC PHYSICIAN: REFERRING PHYSICIAN: LESLIE SANCHEZ MD DATE OF SERVICE: 03/11/19 Discharge Plan Patient Name: FATIMAH STEVENS Facility: [facility]:[place] : 1935 Planned Disposition: Home Anticipated Discharge Date: Discharge Date: 03/11/2019 Expected LOS: Initial Reviewer: [email or web address] Initial Review Date: 03/09/2019 Generated: 03/11/19 9:50 pm DCP- Discharge Planning Updated by [email or web address]: Allyn Arthur on 03/09/19 4:[address] Patient Name: FATIMAH STEVENS Admission Status: ER Accout number: [id number] Admission Date: 03-08-2019 : 1935 Admission Diagnosis: Attending: LESLIE SANCHEZ Current LOS: 1 Anticipated DC Date: Planned Disposition: Home Primary Insurance: [facility] PPO Discharge Planning Comments: CM met with patient at bedside after explaining CM role and obtaining verbal consent. Patient lives at home with his where he is independent with his care and plans to return there upon discharge. Patient feels this would be a safe discharge. CM discussed availability / needs of home health and medical equipment. Patient denies any discharge needs at this time. Patient states he will have his family drive him home upon discharge. CM will continue to follow and assist as needed with discharge planning / needs. Supervisor Fishing: Allyn Arthur DCPIA - Discharge Planning Initial Assessment Updated by [email or web address]: Allyn Arthur on 03/09/19 5:22 pm * Is the patient Alert and Oriented? Yes * How many steps to enter\exit or inside your home? * PCP BELKIS BLANCO * Pharmacy [facility] - [place] * Preadmission Environment Home with Family * ADLs Partial Dependent * Equipment None * List name and contact numbers for known caregivers / representatives who currently or will assist patient after discharge: ADOLFO STEVENS - - [phone], * Verbal permission to speak to the caregivers and representatives has been obtained from the patient. Yes * Community resources currently utilized None * Additional services required to return to the preadmission environment? No * Can the patient safely return to the preadmission environment? Yes * Has this patient been hospitalized within the prior 30 days at any hospital? No Last DP export: 03/09/19 4:26 p Patient Name: FATIMAH STEVENS Page [phone] at 2050 All edits/amendments must be made on the electronic document DICTATION DATE: 03/11/192048 DIVING FISHER: JOSE ANGEL 03/11/192048 RPT#: [id number] DC DATE:03/11/19 STATUS: DIS IN [facility] [address] [place] [address] END OF REPORT
--- NOTE | 2019-03-16 14:28 | OP ---
PATIENT NAME: FATIMAH STEVENS MEDICAL RECORD: [id number] :[birth year] LOCATION:D.[facility] D.2306 ADMISSION DATE:03/08/19 SURGEON: LEIA CORONADO MD DATE OF OPERATION: 03/10/2019 SURGEON: Clinton Moran MD PROCEDURE: Lead portion of permanent pacemaker placement. INDICATIONS: Sick sinus syndrome. DESCRIPTION OF PROCEDURE: After left subclavian was cannulated via modified Seldinger technique via Dr. Moran. First under fluoroscopic guidance we placed the RV lead in RV apex without difficulty. After adequate R waves and thresholds were obtained, the lead was attached to pole of the generator and the pocket was closed via Dr. Moran. IMPRESSION: Successful lead portion of permanent pacemaker placement. ESTIMATED BLOOD LOSS: Minimal. COMPLICATIONS: None. DISPOSITION: To the floor, stable. TRANSINT:[id number] Voice Confirmation ID: [id number] DOCUMENT ID: [id number] 03/12/2019 Edited indication per peter Burns. LEIA CORONADO MD at 1428 CC: [id number] DICTATION DATE: 03/10/19 1600 HOME VISIT FIELD CARE MANAGER: 03/10/19 2229 DIS IN 03/11/19 [facility] [address] [place] [address]
== END 2019-03-11 16:04 | disposition home or self-care (01) | DRG 243 ==
LOC: D.ER 18:24 → D.ICU 20:36
PROVIDERS: Emergency Medicine; Family Medicine; Internal Medicine Cardiovascular Disease; Internal Medicine Interventional Cardiology; ADMIT Internal Medicine Nephrology; ATTEND Internal Medicine Nephrology
PROC: B2111ZZ Fluoroscopy of Multiple Coronary Arteries using Low Osmolar Contrast (ICD-10-PCS; 2019-03-09)
PROC: B2151ZZ Fluoroscopy of Left Heart using Low Osmolar Contrast (ICD-10-PCS; 2019-03-09)
PROC: 4A023N7 Measurement of Cardiac Sampling and Pressure, Left Heart, Percutaneous Approach (ICD-10-PCS; 2019-03-09)
PROC: 02HK3JZ Insertion of Pacemaker Lead into Right Ventricle, Percutaneous Approach (ICD-10-PCS; 2019-03-10)
PROC: 0JH604Z Insertion of Pacemaker, Single Chamber into Chest Subcutaneous Tissue and Fascia, Open Approach (ICD-10-PCS; principal; 2019-03-10 13:00)
DX: I49.5 Sick sinus syndrome (principal); N17.9 Acute kidney failure, unspecified; I44.2 Atrioventricular block, complete; I20.0 Unstable angina; E87.6 Hypokalemia; I11.0 Hypertensive heart disease with heart failure; I50.9 Heart failure, unspecified; D64.9 Anemia, unspecified; E11.9 Type 2 diabetes mellitus without complications; F17.200 Nicotine dependence, unspecified, uncomplicated; I48.91 Unspecified atrial fibrillation